=== PATIENT | male | born 1990 | race Caucasian/White ===

== ENCOUNTER 2016-04-18 18:54 | Emergency (ER) | payer OTHER ==
[~2016-04-18] VITALS: Ht 190.5 cm; Wt 81.6 kg
[~2016-04-18 18:54] MED LIST: ALBUTEROL0.09 MG/A1 INH; ALBUTEROL2.5 MG/3 M INH/SOL; AUGMENTIN 875 M1 TAB PO; BENZONATATE200 M1 PO; MARI INH; MEDROL4 M2 PO; MUCINEX D 12001 TER PO; NAPROXEN500 MG PO; PERCOCET 5-3251 EACH PO; PREDNISONE 20MG20 MG PO; PREDNISONE10 MG PO; PREDNISONE50 MG PO; PROAIR HFA8.5 GM INH; PULMICORT0.25 MG/3 INH/SOL; TESSALON PERLE100 MG PO; VENTOLIN H0.09 MG/Ac INH; VICODIN5-300 PO; ZITHROMAX Z-PA250 M1 PO; ZITHROMAX250 M1 PO
--- NOTE | 2016-04-18 19:39 | ED AMS/SEIZURE/WEAK/DIZZY ---
History of Present Illness General Chief Complaint: General Adult Stated Complaint: TINGLING IN R LEG, LIGHT HEADEDNESS, DIZZY X 1HR Source: patient Exam Limitations: no limitations Vital Signs & Intake/Output Vital Signs & Intake/Output Vital Signs Date Time Temp Pulse Resp B/P Pulse O2 O2 Flow FiO2 Ox Delivery Rate 04/18 2121 98.9 88 18 136/74 99 Room Air 04/18 1909 99.0 96 20 148/82 98 Room Air ED Intake and Output 04/19 0000 04/18 1200 Intake Total 0 Output Total Balance 0 Intake, Oral 0 Patient 180 lb Weight Allergies Coded Allergies: NO KNOWN ALLERGIES (11/09/14) Reconcile Medications Albuterol Sulfate (Proair Hfa) 8.5 GM HFA.AER.AD 2-4 INH INH Q6P PRN ASTHMA Albuterol Sulfate 2.5 MG/3 ML (0.083 %) VIAL.NEB 1 Vial INH/LIZZETTE Q4P PRN wheezing/shortness of breath Cannabis (Marijuana Oil) 1 amp AMP 1 A INH (Reported) Cyclobenzaprine HCl 10 MG TABLET 1 TAB PO 4 TIMES/DAY PRN MUSCLE SPASM Triage Note: PT TO FOR A WEEK. C/O LIGHTHEADEDNESS AND DIZZINESS FOR 1 HR. +NAUSEA FOR 30 MINS. PMH OF CHRONIC LOW BACK PAIN. USES MEDICAL MARIJUANA FOR PMH OF PTSD. IS TREMULOUS IN TRIAGE. DENIES ILLICIT DRUGS RECENTLY, OCCASIONALLY ETOH USER. STATES HAS HAD A SLIGHT COUGH AND HAD +N/V YESTERDAY, "GENERALLY NOT FEELING WELL" "UNDER A LOT OF STRESS" "I'M GETTING A DIVORCE" "NOT SLEEPING WELL" Triage Nurses Notes Reviewed? yes Onset: Gradual Duration: week(s):, waxing and waning Timing: recent history Injury Environment: home Severity: mild, moderate Modifying Factors: Improves With: rest. Associated Symptoms: body aches, intermittent tremor HPI: 25-year-old gentleman history of PTSD and chronic pain, and medical marijuana, presents with several week history of lower back pain and body aches and for the past day intermittent tremors. He notes that he has pain, "all over." He notes that he has a patch of numbness on the lateral aspect of his right leg. He has no fever chills. He is tolerating fluids well. He is otherwise well. Past History Travel History Traveled to [place] past 21 day No Medical History Any Pertinent Medical History? see below for history Neurological: NONE EENT: NONE Cardiovascular: NONE Respiratory: asthma Gastrointestinal: NONE Hepatic: NONE Renal: NONE Musculoskeletal: chronic back pain Psychiatric: insomnia, PTSD Endocrine: NONE Blood Disorders: NONE Cancer(s): NONE GEAR CHANGER/Reproductive: NONE Surgical History Surgical History: N Psychosocial History What is your primary language [place] Citizen Tobacco Use: Current Daily Use Daily Tobacco Use Amount/Type: => 5 Cigarettes daily ETOH Use: occasional use Illicit Drug Use: marijuana Family History Hx Contributory? No Review of Systems Review of Systems Constitutional: Reports: no symptoms. EENTM: Reports: no symptoms. Respiratory: Reports: no symptoms. Cardiovascular: Reports: no symptoms. GI: Reports: no symptoms. Genitourinary: Reports: no symptoms. Musculoskeletal: Reports: no symptoms. Skin: Reports: no symptoms. Neurological/Psychological: Reports: no symptoms. Hematologic/Endocrine: Reports: no symptoms. Immunologic/Allergic: Reports: no symptoms. All Other Systems: Reviewed and Negative Physical Exam Physical Exam General Appearance: well developed/nourished, no apparent distress, comfortable Head: atraumatic, normal appearance Eyes: Bilateral: normal appearance. Ears, Nose, Throat: normal pharynx, normal ENT inspection Neck: normal inspection, supple, full range of motion Respiratory: normal breath sounds, chest non-tender, no respiratory distress, quiet respiration, lungs clear Cardiovascular: regular rate/rhythm Gastrointestinal: normal bowel sounds, soft, non-tender, no organomegaly Back: normal inspection Extremities: normal range of motion Neurologic/Psych: no motor/sensory deficits, awake, alert, oriented x 3 Skin: intact, normal color, warm/dry Comments: Neurologic exam is benign. Light touch strength and deep tendon reflexes are normal and symmetric bilaterally. Core Measures ACS in differential dx? No CVA/TIA Diagnosis: No Severe Sepsis Present: No Septic Shock Present: No Progress Differential Diagnosis: essential tremor, myalgia, viral syndrome, which led abnormality versus other. Plan of Care: Orders Procedure Date/time Status Add-on Test (ER Only) 04/18 1941 Active D-DIMER 04/18 1917 Complete URINE DRUG SCREEN FOR ER ONLY 04/18 1916 Complete URINALYSIS 04/18 1916 Complete TROPONIN LEVEL 04/18 1916 Complete ETHANOL 04/18 1916 Complete COMPREHENSIVE METABOLIC PANEL 04/18 1916 Complete CBC WITHOUT DIFFERENTIAL 04/18 1916 Complete EKG 04/18 1857 Active Laboratory Tests 04/18/16 192: Urine Opiates Screen < 100.00, Methadone Screen < 40, Barbiturate Screen < 60, Ur Phencyclidine Scrn < 6.00, Amphetamines Screen < 100, U Benzodiazepines Scrn < 85, Urine Cocaine Screen < 50, Urine Cannabis Screen > 80.00 H, Urine Color YEL, Urine Clarity CLEAR, Urine pH 6.5, Ur Specific [place] 1.015, Urine Protein NEG, Urine Ketones NEG, Urine Nitrite NEG, Urine Bilirubin NEG, Urine Urobilinogen 0.2, Ur Leukocyte Esterase NEG, Ur Microscopic EXAM NOT REQUIRED, Urine Hemoglobin NEG, Urine Glucose NEG 04/18/161917: Anion Gap 11, Estimated GFR > 60, BUN/Creatinine Ratio 16.0, Glucose 110 H, Calcium 9.4, Total Bilirubin 0.5, AST 26, ALT 33, Alkaline Phosphatase 80, Troponin I < 0.01, Total Protein 7.5, Albumin 4.4, Globulin 3.1, Albumin/ Globulin Ratio 1.4, D-Dimer < 200, CBC w Diff NO MAN DIFF REQ, RBC 5.02, MCV 92.3, MCH 31.3 H, RDW 13.1, MPV 8.4, Gran % 60.2, Lymphocytes % 24.7, Monocytes % 11.8 H, Eosinophils % 2.8, Basophils % 0.5, Absolute Granulocytes 3.5, Absolute Lymphocytes 1.4, Absolute Monocytes 0.7 H, Absolute Eosinophils 0.2, Absolute Basophils 0, PUBS MCHC 33.9, Serum Alcohol < 10.0 Initial ED EKG: normal axis, normal intervals, normal p-waves, normal QRS complex, normal sinus rhythm Departure Departure Disposition: HOME OR SELF CARE Condition: Stable Clinical Impression Primary Impression: Tingling Secondary Impressions: Myalgia Referrals: PATIENT HAS NO PRIMARY CARE DR (PCP/Family) Departure Forms: Customer Survey General Discharge Information Prescriptions: Current Visit Scripts Cyclobenzaprine HCl 1 TAB PO 4 TIMES/DAY PRN MUSCLE SPASM #30 TAB Ref 1 Comments Patient with benign labs and a benign exam. I discussed the wide differential for these symptoms. I believe there is no serious, urgent medical issue at this time. I encouraged close follow-up with his primary care doctor, and return to the emergency department if his symptoms worsen.
[2016-04-18 19:56] LABS: ABSOLUTE BASOPHIL COUNT 0 /CUMM (0.0-0.2); ABSOLUTE EOSINOPHIL COUNT 0.2 /CUMM (0.0-0.7); ABSOLUTE GRANULOCYTE CT 3.5 /CUMM (1.4-6.5); ABSOLUTE LYMPH COUNT 1.4 /CUMM (1.2-3.4); ABSOLUTE MONOCYTE COUNT 0.7 /CUMM (0.10-0.60); BASOPHIL % 0.5 % (0.0-2.0); EOSINOPHIL % 2.8 % (0-5); GRANULOCYTE % 60.2 % (42.2-75.2); HEMATOCRIT 46.3 % (42-52); MEAN CORPUSCULAR HGB 31.3 PG (27.0-31.0); MEAN CORPUSCULAR HGB CONC 33.9 G/DL (33.0-37.0); MEAN CORPUSCULAR VOLUME 92.3 FL (80.0-94.0); MEAN PLATELET VOLUME 8.4 FL (7.4-10.4); PLATELET COUNT 178 /CUMM (130-400); RBC DISTRIBUTION WIDTH 13.1 % (11.5-14.5); RED BLOOD CELL CT 5.02 /CUMM (4.70-6.10); WHITE BLOOD CELL COUNT 5.8 /CUMM (4.8-10.8)
[2016-04-18] MEDS ORDERED: CYCLOBENZAPRINE10 M1 PO (20:07)
[2016-04-18 21:22] VITALS: BP 136/74
== END 2016-04-18 21:32 ==
LOC: ERH 18:54
PROVIDERS: Pediatrics
DX: R20.2 Paresthesia of skin (principal); M79.1 Myalgia; M54.5 Low back pain; R25.1 Tremor, unspecified; F12.10 Cannabis abuse, uncomplicated; F10.10 Alcohol abuse, uncomplicated
CPT/HCPCS: 80307; 81003; 93005; 93010; G0480